=== PATIENT | female | born 2000 | race Caucasian/White ===

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

== ENCOUNTER → 2022-11-26 | Outpatient (REF) | payer BC | LOC: M LAB REF 19:52 | PROVIDERS: ATTEND Student in an Organized Health Care Education/Training Program | DX: R30.0 Dysuria (principal) ==

== ENCOUNTER → 2023-04-29 | Outpatient (CLI) | payer OTHER | LOC: M WHC 09:09 | PROVIDERS: ATTEND Specialist | DX: Z34.01 Encounter for supervision of normal first pregnancy, first trimester (principal) ==

== ENCOUNTER → 2023-05-22 | Outpatient (CLI) | payer OTHER | LOC: M WHC 08:03 | PROVIDERS: ATTEND Obstetrics & Gynecology | DX: Z34.02 Encounter for supervision of normal first pregnancy, second trimester (principal); Z3A.23 23 weeks gestation of pregnancy ==

== ENCOUNTER → 2023-06-17 | Outpatient (CLI) | payer OTHER ==
[2023-06-17 13:52] LABS: HEMATOCRIT 35.9 % (36.0-47.0); HEMOGLOBIN 11.8 g/dl (12.0-15.5); MEAN CORPUSCULAR HGB CONC 32.9 g/dl (32.0-36.5); MEAN CORPUSCULAR VOLUME 91.3 fl (80.0-96.0); PLATELET COUNT, AUTOMATED 224 10^3/uL (150-450); RED BLOOD COUNT 3.93 10^6/uL (4.00-5.40); WHITE BLOOD COUNT 9.3 10^3/uL (4.0-10.0)
== END ==
LOC: M PLALAB 09:14
PROVIDERS: ATTEND Obstetrics & Gynecology
DX: Z34.02 Encounter for supervision of normal first pregnancy, second trimester (principal); Z3A.00 Weeks of gestation of pregnancy not specified

== ENCOUNTER → 2023-07-01 | Outpatient (CLI) | payer OTHER | LOC: M LAB 07:32 | PROVIDERS: ATTEND Obstetrics & Gynecology | DX: R73.02 Impaired glucose tolerance (oral) (principal) ==

== ENCOUNTER 2023-08-19 17:40 | Inpatient (IN) | payer OTHER ==
[~2023-08-19] VITALS: Ht 162.6 cm; Wt 71.7 kg
[2023-08-19] MEDS ORDERED: OXYTOCIN DRIP 30 UNITS in IV 1 EA IV PRN (18:30)
[2023-08-19] MEDS ORDERED: CARBOPROST TROMETHAMINE 250 MCG/ML AMP IM PRN (18:30)
[2023-08-19] MEDS ORDERED: METHYLERGONOVINE MALEATE 0.2MG/ML 1ML VIAL IM PRN (18:30)
[2023-08-19] MEDS ORDERED: OXYTOCIN INJ 10UNITS/ML 1ML VIAL IM PRN (18:30)
[2023-08-19] MEDS ORDERED: TRANEXAMIC ACID INJection 1,000 MG in NS 100 ML IV PRN (18:30)
[2023-08-19] MEDS: BETAMETHASONE SOLUSPAN 6MG/ML 5ML VIAL IM SCH (18:54)
[2023-08-19] MEDS: LR 1,000 ML IV SCH (18:54)
[2023-08-19] MEDS: PENICILLIN G POTASSIUM 5 MU IV 5 MU in D5W MINI-BAG PLUS 100 ML IV STA (18:59)
[2023-08-19 19:08] VITALS: BP 132/78
[2023-08-19 19:08] LABS: HEMATOCRIT 36.1 % (36.0-47.0); HEMOGLOBIN 11.9 g/dl (12.0-15.5); MEAN CORPUSCULAR HEMOGLOBIN 28.1 pg (27.0-33.0); MEAN CORPUSCULAR VOLUME 85.3 fl (80.0-96.0); PLATELET COUNT, AUTOMATED 266 10^3/uL (150-450); RED BLOOD COUNT 4.23 10^6/uL (4.00-5.40); WHITE BLOOD COUNT 11.4 10^3/uL (4.0-10.0)
[2023-08-19 20:05] LABS: HEPATITIS C VIRUS ABY INDEX < 0.02 INDEX (<0.8)
[2023-08-19 20:37] VITALS: BP 108/62
[2023-08-19 22:39] VITALS: BP 130/84
[2023-08-19] MEDS: PEN G POT 3,000,000 UNIT/50 ML 3,000,000 UNIT in IV 1 EA IV SCH (22:55)
[2023-08-20] VITALS (7 sets, daily range): BP systolic 103–130; BP diastolic 55–70; O2SAT 96–99
[2023-08-20] MEDS: LIDOCAINE 1% MDV 20ML VIAL INFIL PRN (02:19)
[2023-08-20] MEDS: OXYTOCIN DRIP 30 UNITS in IV 1 EA IV PRN (02:20)
[2023-08-20] MEDS ORDERED: IBUPROFEN 800 MG TAB PO PRN (02:35)
[2023-08-20] MEDS ORDERED: IBUPROFEN 600MG TAB PO PRN (02:35)
[2023-08-20] MEDS ORDERED: ACETAMINOPHEN TAB 650MG DOSE (2X325MG) PO PRN (02:35)
[2023-08-20] MEDS ORDERED: DOCUSATE SODIUM 100MG CAPSULE PO PRN (02:35)
[2023-08-20] MEDS ORDERED: ACETAMINOPHEN 500 MG TAB PO PRN (02:35)
[2023-08-20] MEDS ORDERED: METHYLERGONOVINE MALEATE 0.2 MG TAB PO PRN (02:35)
[2023-08-20] MEDS ORDERED: DIBUCAINE 1% OINTMENT 30GM TOP PRN (02:35)
[2023-08-20] MEDS: RHO(D) IMMUNE GLOBULIN/MALTOSE 500MCG(2500IU)/2.2ML VIAL (WINRHO) IM SCH (07:18)
[2023-08-20] MEDS: PRENATAL VITAMINS CHEWABLE TABLET PO SCH (07:46)
[2023-08-21 06:00] VITALS: BP 120/65; O2SAT 99
[2023-08-21 08:23] VITALS: BP 120/65; TEMP 97.8; O2SAT 99
[2023-08-22] MEDS ORDERED: MEASLES,MUMPS,RUBELLA VACCINE INJ (MMR-II) SC.IMMUN ONE (09:00)
== END 2023-08-21 14:00 | disposition home or self-care (01) | DRG 560 ==
LOC: M LDO 17:40 → M LDI 18:20 → M OBS 08-20 04:00
PROVIDERS: ADMIT Advanced Practice Midwife; ATTEND Advanced Practice Midwife
PROC: 10E0XZZ Delivery of Products of Conception, External Approach (ICD-10-PCS; principal; 2023-08-20)
PROC: 10907ZC Drainage of Amniotic Fluid, Therapeutic from Products of Conception, Via Natural or Artificial Opening (ICD-10-PCS; 2023-08-20)
PROC: 0HQ9XZZ Repair Perineum Skin, External Approach (ICD-10-PCS; 2023-08-20)
DX: O60.14X0 Preterm labor third trimester with preterm delivery third trimester, not applicable or unspecified (principal); O70.0 First degree perineal laceration during delivery; Z37.0 Single live birth; Z3A.36 36 weeks gestation of pregnancy

== ENCOUNTER → 2024-02-10 | Outpatient (REF) | payer OTHER, MEDICAID, MEDICARE ==
[2024-02-10 18:17] LABS: ALBUMIN 3.6 G/DL (3.2-5.2); ALKALINE PHOSPHATASE 39 U/L (46-116); ALT/SGPT 13 U/L (7.0-40); AST/SGOT 9 U/L (<34); BILIRUBIN,TOTAL 0.6 MG/DL (0.3-1.2); BLOOD UREA NITROGEN 14 MG/DL (9-23); CALCIUM LEVEL 9.1 MG/DL (8.5-10.1); CARBON DIOXIDE LEVEL 25 MMOL/L (20-31); CHLORIDE LEVEL 111 MMOL/L (98-107); CREATININE FOR GFR 0.68 MG/DL (0.55-1.30); GLOMERULAR FILTRATION RATE > 60.0 (>60); GLUCOSE, FASTING 83 MG/DL (60-100); POTASSIUM SERUM 4.8 MMOL/L (3.5-5.1); SODIUM LEVEL 141 MMOL/L (136-145); TOTAL PROTEIN 6.7 G/DL (5.7-8.2)
[2024-02-10 18:18] LABS: THYROID STIMULATING HORMONE 1.068 uIU/ML (0.55-4.78); TOTAL 25(OH) VITAMIN D 32.4 NG/ML (20.0-100.0)
== END ==
LOC: M LAB REF 16:33
PROVIDERS: ATTEND Physician Assistant
DX: Z39.2 Encounter for routine postpartum follow-up (principal); E55.9 Vitamin D deficiency, unspecified

== ENCOUNTER → 2024-09-05 | Outpatient (REF) | payer MEDICARE, OTHER ==
[2024-09-05 16:36] LABS: Trichomonas vaginalis (AMP) NOT DETECTED (NEGATIVE)
[2024-09-05 17:00] LABS: GC DNA AMPLIFICATION NEGATIVE (NEGATIVE)
== END ==
LOC: M PLALAB 13:34
PROVIDERS: ATTEND Nurse Practitioner Family
DX: Z34.80 Encounter for supervision of other normal pregnancy, unspecified trimester (principal)

== ENCOUNTER → 2024-11-28 | Outpatient (CLI) | payer OTHER | LOC: M WHC 08:26 | PROVIDERS: ATTEND Advanced Practice Midwife | DX: Z34.82 Encounter for supervision of other normal pregnancy, second trimester (principal); Z3A.20 20 weeks gestation of pregnancy ==

== ENCOUNTER 2025-01-11 09:00 | Outpatient (CLI) | payer OTHER, MEDICARE ==
[~2025-01-11] VITALS: Ht 162.6 cm; Wt 67.6 kg
[2025-01-11 09:20] VITALS: BP 119/74
[2025-01-11] MEDS ORDERED: MULTTAB20 PO (09:24)
[2025-01-11] MEDS ORDERED: HOME MED LIST COMPLETE! XX SCH (09:25)
[2025-01-11 10:41] VITALS: BP 129/70
[2025-01-11 11:53] LABS: Trichomonas vaginalis (AMP) NOT DETECTED (NEGATIVE)
[2025-01-11 12:17] LABS: GC DNA AMPLIFICATION NEGATIVE (NEGATIVE)
== END 2025-01-11 11:30 | disposition home or self-care (01) ==
LOC: M LDO 09:00
PROVIDERS: ATTEND Advanced Practice Midwife
DX: O26.892 Other specified pregnancy related conditions, second trimester (principal); O09.892 Supervision of other high risk pregnancies, second trimester; N89.8 Other specified noninflammatory disorders of vagina; Z3A.26 26 weeks gestation of pregnancy
CPT/HCPCS: 59025; 76815; 76817; 87661; 87810; 87850; G0463

== ENCOUNTER → 2025-01-30 | Outpatient (CLI) | payer OTHER ==
[~2025-01-30] MED LIST: MULTTAB20 PO
[2025-01-30 10:26] LABS: PLATELET COUNT, AUTOMATED 257 10^3/uL (150-450)
[2025-01-30 11:02] LABS: GLUCOSE CHALLENGE TEST 1 HOUR 87 MG/DL (LESS THAN 140)
[2025-01-30 11:34] LABS: Trichomonas vaginalis (AMP) NOT DETECTED (NEGATIVE)
[2025-01-30 11:57] LABS: GC DNA AMPLIFICATION NEGATIVE (NEGATIVE)
[2025-01-30 15:46] LABS: HIV 1&2 SCREEN NEGATIVE (NEGATIVE)
[2025-01-30 15:54] LABS: HEPATITIS C VIRUS ABY INDEX 0.03 INDEX (<0.8)
== END ==
LOC: M PLALAB 08:05
PROVIDERS: ATTEND Nurse Practitioner Family
DX: Z34.80 Encounter for supervision of other normal pregnancy, unspecified trimester (principal); Z3A.00 Weeks of gestation of pregnancy not specified

== ENCOUNTER 2025-02-27 14:53 | Outpatient (CLI) | payer OTHER, MEDICARE ==
[~2025-02-27] VITALS: Ht 162.6 cm; Wt 73.3 kg
[2025-02-27 15:14] VITALS: BP 111/69
[2025-02-27] MEDS: BETAMETHASONE SOLUSPAN 6 MG/ML 5 ML VIAL IM SCH (16:30)
[2025-02-27] MEDS: LACTATED RINGER'S 1000 ML IV STA (16:33)
[2025-02-27 16:49] LABS: PLATELET COUNT, AUTOMATED 229 10^3/uL (150-450)
[2025-02-27 16:57] VITALS: BP 115/67
[2025-02-27] MEDS: NIFEdipine 10 MG CAP PO ONE (17:06)
[2025-02-27 17:47] LABS: HIV 1&2 SCREEN NEGATIVE (NEGATIVE)
[2025-02-27 17:48] VITALS: BP 112/60
[2025-02-27 17:54] LABS: HEPATITIS C VIRUS ABY INDEX < 0.02 INDEX (<0.8)
[2025-02-27] MEDS: LR 1,000 ML IV SCH (18:37)
[2025-02-28] VITALS (11 sets, daily range): BP systolic 90–121; BP diastolic 51–71
[2025-02-28] MEDS ORDERED: NIFEdipine 10 MG CAP As Ordered ONE (07:27)
[2025-02-28] MEDS: NIFEdipine 10 MG CAP PO SCH ×2 (07:30→13:37)
[2025-02-28] MEDS: LR 1,000 ML IV ONE (09:39)
[2025-02-28] MEDS ORDERED: NIFEdipine 10 MG CAP PO SCH (19:30)
== END 2025-02-28 20:43 | disposition home or self-care (01) ==
LOC: M LDO 14:53
PROVIDERS: ATTEND Advanced Practice Midwife
DX: O47.03 False labor before 37 completed weeks of gestation, third trimester (principal); O09.893 Supervision of other high risk pregnancies, third trimester; Z87.51 Personal history of pre-term labor; Z87.59 Personal history of other complications of pregnancy, childbirth and the puerperium; Z3A.32 32 weeks gestation of pregnancy
CPT/HCPCS: 59025; 76815; 76816; 76820; 85027; 86780; 86803; 86850; 86900; 86901; 87081; 87389; 96360; 96361; 96372; G0463; J0702

== ENCOUNTER 2025-03-31 10:43 | Inpatient (IN) | payer MEDICARE, OTHER ==
[2025-03-31] VITALS (37 sets, daily range): BP systolic 108–159; BP diastolic 59–96
[~2025-03-31] VITALS: Ht 162.6 cm; Wt 77.9 kg
[2025-03-31] MEDS ORDERED: HOME MED LIST COMPLETE! XX SCH (11:00)
[2025-03-31] MEDS ORDERED: METHYLERGONOVINE MALEATE 0.2 MG/ML 1 ML VIAL IM PRN (11:10)
[2025-03-31] MEDS ORDERED: TRANEXAMIC ACID INJection 1,000 MG in NS 100 ML IV PRN (11:10)
[2025-03-31] MEDS ORDERED: OXYTOCIN DRIP 30 UNITS in IV 1 EA IV PRN (11:10)
[2025-03-31] MEDS ORDERED: LR 1,000 ML IV SCH (11:10)
[2025-03-31] MEDS ORDERED: CARBOPROST TROMETHAMINE 250 MCG/ML AMP IM PRN (11:10)
[2025-03-31] MEDS ORDERED: LIDOCAINE 1% MDV 20 ML VIAL INFIL PRN (11:10)
[2025-03-31 11:55] LABS: PLATELET COUNT, AUTOMATED 239 10^3/uL (150-450)
[2025-03-31 12:51] LABS: HIV 1&2 SCREEN NEGATIVE (NEGATIVE)
[2025-03-31 12:59] LABS: HEPATITIS C VIRUS ABY INDEX < 0.02 INDEX (<0.8)
[2025-03-31] MEDS: LR 1,000 ML IV SCH (15:57)
[2025-03-31] MEDS: OXYTOCIN DRIP 30 UNITS in IV 1 EA IV SCH (15:57)
[2025-03-31] MEDS ORDERED: NALOXONE INJ 0.4 MG/1 ML VIAL IV PRN (18:25)
[2025-03-31] MEDS ORDERED: ONDANSETRON 4MG/2ML VIAL IV PRN ×2 (18:25→23:25)
[2025-03-31] MEDS ORDERED: diphenhydrAMINE 50 MG/ML VIAL IV PRN (18:25)
[2025-03-31] MEDS ORDERED: LR 500 ML IV PRN (18:25)
[2025-03-31] MEDS ORDERED: EPIDURAL/PCA KEYS XX PRN (18:25)
[2025-03-31] MEDS: FENTANYL/ROPIVACAINE/NACL BAG 100 ML EPIDURAL SCH (18:37)
[2025-03-31] MEDS ORDERED: ANUSOL HC CREAM 30 GM TOP PRN (23:25)
[2025-03-31] MEDS ORDERED: IBUPROFEN 800 MG TAB PO PRN (23:25)
[2025-03-31] MEDS ORDERED: MOM 30 ML SUSPENSION UDC PO PRN (23:25)
[2025-03-31] MEDS ORDERED: ACETAMINOPHEN 500 MG TAB PO PRN (23:25)
[2025-03-31] MEDS ORDERED: DOCUSATE SODIUM 100 MG CAPSULE PO PRN (23:25)
[2025-03-31] MEDS ORDERED: CALCIUM CARBONATE 500 MG CHEW U/D PO PRN (23:25)
[2025-03-31] MEDS ORDERED: ACETAMINOPHEN 325 MG TAB PO PRN (23:25)
[2025-03-31] MEDS ORDERED: IBUPROFEN 600 MG TAB PO PRN (23:25)
[2025-03-31] MEDS ORDERED: METHYLERGONOVINE MALEATE 0.2 MG TAB PO PRN (23:25)
[2025-04-01 01:15] VITALS: BP 130/61; O2SAT 100
[2025-04-01 05:19] VITALS: BP 109/58; O2SAT 96
[2025-04-01] MEDS: FERROUS SULFATE 325 MG TAB PO SCH (08:23)
[2025-04-01] MEDS: PRENATAL VITAMINS CHEWABLE TABLET PO SCH (08:23)
[2025-04-01] MEDS: RHOGAM 300MCG (1500IU) INJ IM SCH (08:24)
[2025-04-01] MEDS: DIBUCAINE 1% OINTMENT 30 GM TOP PRN (08:24)
[2025-04-01 18:00] VITALS: BP 118/80; O2SAT 100
[2025-04-02 05:21] VITALS: BP 124/81; O2SAT 98
[2025-04-02] MEDS: MEASLES,MUMPS,RUBELLA VACCINE INJ (MMR-II) SC.IMMUN ONE (09:00)
== END 2025-04-02 12:28 | disposition home or self-care (01) | DRG 560 ==
LOC: M LDO 10:43 → M LDI 10:57 → M OBS 04-01 00:59
PROVIDERS: ADMIT Advanced Practice Midwife; ATTEND Advanced Practice Midwife
PROC: 10E0XZZ Delivery of Products of Conception, External Approach (ICD-10-PCS; principal; 2025-03-31)
DX: O80 Encounter for full-term uncomplicated delivery (principal); Z37.0 Single live birth; Z3A.37 37 weeks gestation of pregnancy